=== PATIENT | male | born 1930 | race Caucasian/White ===

== ENCOUNTER 2018-12-29 18:19 | Emergency (ER) | payer OTHER ==
[~2018-12-29] VITALS: Ht 175.3 cm; Wt 80.0 kg
[2018-12-29 19:54] VITALS: BP 181/78
== END 2018-12-29 20:01 | disposition home or self-care (01) ==
LOC: ED 19:55
DX: S06.0X0A Concussion without loss of consciousness, initial encounter (principal); S16.1XXA Strain of muscle, fascia and tendon at neck level, initial encounter; S51.801A Unspecified open wound of right forearm, initial encounter; S51.001A Unspecified open wound of right elbow, initial encounter; I10 Essential (primary) hypertension; E78.5 Hyperlipidemia, unspecified; W10.9XXA Fall (on) (from) unspecified stairs and steps, initial encounter; Y93.89 Activity, other specified; Y92.59 Other trade areas as the place of occurrence of the external cause; Y99.8 Other external cause status
CPT/HCPCS: 70450; 72125; 99284